=== PATIENT | male | born 1975 | race Caucasian/White ===

== ENCOUNTER 2016-11-28 19:01 | Emergency (ER) | payer BC ==
[~2016-11-28] VITALS: Ht 175.3 cm; Wt 99.3 kg
[~2016-11-28 19:01] MED LIST: ASPIRIN81 M1 PO; GLUCOPHAGE XR500 MG PO; LIPITOR10 MG PO; ZESTRIL20 MG PO
[2016-11-28 19:31] VITALS: BP 152/85
--- NOTE | 2016-11-28 20:30 | NUR ---
PT TAKEN TO BED 4
--- NOTE | 2016-11-28 20:35 | NUR ---
41 Y/O M W/C/O RASH ALL OVER X 2 DAYS. PT DIAGNOSED WITH SHINGLES YESTERDAY AT URGENT CARE AND PRESCRIBED ACYCLOVER. PT STATES HIS RASH KEEPS SPREADING, AND IS VERY PAINFUL. NO S/S OF DISTRESS NOTED AT THE MOMENT. ER MD MADE AWARE.
--- NOTE | 2016-11-28 20:49 | NUR ---
Dr. Wing evaluating patient at bedside.
[2016-11-28] MEDS ORDERED: HYDROcodone/APAP 5/325 MG 1 TAB TAB PO ONE (21:05)
[2016-11-28] MEDS ORDERED: KETOROLAC 30 MG/ML VIAL IM ONE (21:05)
[2016-11-28 21:36] VITALS: BP 145/85
--- NOTE | 2016-11-28 21:36 | NUR ---
Patient discharged with v/s stable. Written and verbal after care instructions given and explained. Patient alert, oriented and verbalized understanding of instructions. Ambulatory with steady gait. All questions addressed prior to discharge. ID band removed. Patient advised to follow up with PMD TOMORROW OR RETURN TO ER IF CONDITION WORSENS. Rx of NAPROSYN AND NORCO given. Patient educated on indication of medication including possible reaction and side effects. Opportunity to ask questions provided and answered.
== END 2016-11-28 21:36 | disposition home or self-care (01) ==
LOC: MED 19:01
DX: B02.9 Zoster without complications (principal); E11.9 Type 2 diabetes mellitus without complications; I10 Essential (primary) hypertension; Z86.73 Personal history of transient ischemic attack (TIA), and cerebral infarction without residual deficits; Z91.030 Bee allergy status; Z90.89 Acquired absence of other organs
CPT/HCPCS: 96372; 99283; J1885